=== PATIENT | female | born 1990 | race Caucasian/White ===

== ENCOUNTER 2017-08-28 14:51 | Inpatient (IN) | payer OTHER ==
[~2017-08-28] VITALS: Ht 167.6 cm; Wt 84.8 kg
[2017-08-28] MEDS ORDERED: MORPHINE SULFATE 10 MG/ML SYR IVP PRN (16:15)
[2017-08-28] MEDS ORDERED: LACTATED RINGERS 1,000 ML IV SCH (16:15)
[2017-08-28 17:02] LABS: BASOPHILS # (AUTO) 0.2 K/uL (0.00-0.22); BASOPHILS % (AUTO) 1.3 % (0.0-2.0); EOSINOPHILS # (AUTO) 0.1 K/uL (0-0.4); HEMATOCRIT 39.6 % (36-48); HEMOGLOBIN 13.4 g/dL (12.0-16.0); LYMPHOCYTES # (AUTO) 1.5 K/uL (2.5-16.5); LYMPHOCYTES % (AUTO) 13.1 % (20.5-51.1); MEAN CORPUSCULAR HEMOGLOBIN 31 pg (27-31); MEAN CORPUSCULAR HGB CONC 34 g/dL (33-37); MEAN CORPUSCULAR VOLUME 92 fL (80-94); MONOCYTES # (AUTO) 0.6 K/uL (0.8-1.0); MONOCYTES % (AUTO) 5.5 % (1.7-9.3); NEUTROPHILS # (AUTO) 9.2 K/uL (1.8-7.7); NEUTROPHILS % (AUTO) 79.1 % (42.2-75.2); PLATELET COUNT (AUTO) 231 K/uL (140-450); RED BLOOD CELL COUNT(AUTO) 4.33 MIL/uL (4.20-5.40); RED CELL DISTRIBUTION WIDTH 12.8 % (11.6-13.7); WHITE BLOOD COUNT (AUTO) 11.6 K/uL (4.8-10.8)
[2017-08-28 17:15] LABS: APPEARANCE,URINE CLEAR (CLEAR); BILIRUBIN,URINE NEGATIVE (NEGATIVE); BLOOD, URINE 2+ (NEGATIVE); COLOR,URINE YELLOW (YELLOW); LEUKOCYTE ESTERASE ,URINE NEGATIVE (NEGATIVE); NITRITE, URINE NEGATIVE (NEGATIVE); UGLUCOSE NEGATIVE (NEGATIVE)
[2017-08-28 17:17] LABS: RBC,URINE 0-5 (RARE) /HPF (0-5); WBC,URINE 0-5 (RARE) /HPF (0-5)
[2017-08-28] MEDS ORDERED: PREN-546 PO (17:31)
[2017-08-28] MEDS ORDERED: FERR-252 PO (17:31)
[2017-08-28] MEDS ORDERED: CALC650T90 PO (17:31)
[2017-08-28] MEDS ORDERED: NALBUPHINE HYDROCHLORIDE 10 MG/ML VIAL ONE (21:42)
[2017-08-28] MEDS ORDERED: PROMETHAZINE 25 MG/ML VIAL ONE (21:43)
[2017-08-28] MEDS: PROMETHAZINE 25 MG/ML VIAL IVP PRN (21:49)
[2017-08-28] MEDS: NALBUPHINE 10 MG/ML AMP IVP PRN (21:49)
[2017-08-29] MEDS ORDERED: AMPICILLIN 2,000 MG in NACL 0.9% MINI-BAG PLUS 100 ML IV SCH (01:00)
[2017-08-29] MEDS ORDERED: AMPICILLIN 2,000 MG VIAL ONE (01:27)
[2017-08-29] MEDS: PROMETHAZINE 25 MG/ML VIAL IVP PRN (03:29)
[2017-08-29] MEDS: NALBUPHINE 10 MG/ML AMP IVP PRN (03:30)
[2017-08-29] MEDS ORDERED: NALBUPHINE HYDROCHLORIDE 10 MG/ML VIAL ONE (03:37)
[2017-08-29] MEDS ORDERED: PROMETHAZINE 25 MG/ML VIAL ONE (03:37)
[2017-08-29] MEDS ORDERED: OXYTOCIN 20 UNITS in LACTATED RINGERS 1,000 ML IV SCH (04:00)
[2017-08-29] MEDS ORDERED: CARBOPROST 250 MCG/ML AMP IM PRN (04:00)
[2017-08-29] MEDS ORDERED: METHYLERGONOVINE 0.2 MG/ML AMP IM PRN ×2 (04:00→05:00)
[2017-08-29] MEDS ORDERED: OXYTOCIN 10 UNITS/ML VIAL IM SCH (04:00)
[2017-08-29] MEDS ORDERED: OXYTOCIN 10 UNITS/ML VIAL ONE (04:11)
[2017-08-29] MEDS ORDERED: OXYTOCIN 20 UNITS/LR PREMIX 1,000 ML IV ONE (04:11)
[2017-08-29] MEDS ORDERED: AMPICILLIN 1,000 MG in NACL 0.9% MINI-BAG PLUS 50 ML IV SCH (05:00)
[2017-08-29] MEDS ORDERED: HYDROcodone/APAP 5/325 MG 1 TAB TAB PO PRN (05:00)
[2017-08-29] MEDS ORDERED: TEMAZEPAM 15 MG CAP PO PRN (05:00)
[2017-08-29] MEDS ORDERED: oxyCODONE/APAP 5/325 MG 1 TAB TAB PO PRN (05:00)
[2017-08-29] MEDS ORDERED: OXYTOCIN 10 UNITS/ML VIAL IM PRN (05:00)
[2017-08-29] MEDS ORDERED: MEASLES, MUMPS, AND RUBELLA 1 VIAL SQVAC PRN (05:00)
[2017-08-29] MEDS ORDERED: BENZOCAINE/MENTHOL 20%-0.5% 60 GM CAN TP PRN (05:00)
[2017-08-29] MEDS ORDERED: IBUPROFEN 800 MG TAB PO PRN (05:00)
[2017-08-29] MEDS ORDERED: LIDOCAINE 1% 0 ML ONE (05:11)
--- NOTE | 2017-08-29 09:04 | NUR ---
PATIENT HAS BEEN SCREENED AND CATEGORIZED LOW NUTRITION RISK. PATIENT WILL BE SEEN WITHIN 7 DAYS OF ADMISSION. 09/04/[address]
[2017-08-29] MEDS ORDERED: DOCUSATE SOD/SENNA 50/8.6 MG 1 TAB PO SCH (21:00)
[2017-08-30 06:49] LABS: HEMATOCRIT 36.5 % (36-48); HEMOGLOBIN 12.6 g/dL (12.0-16.0)
[2017-08-30] MEDS ORDERED: IBUP-2217 PO (10:28)
== END 2017-08-31 14:10 | disposition home or self-care (01) | DRG 560 ==
LOC: OBSVTOIN 14:51 → MLD 14:51 → MFCC 08-29 09:35
PROVIDERS: ADMIT Obstetrics & Gynecology; ATTEND Obstetrics & Gynecology
PROC: 0HQ9XZZ Repair Perineum Skin, External Approach (ICD-10-PCS; principal; 2017-08-29)
PROC: 10E0XZZ Delivery of Products of Conception, External Approach (ICD-10-PCS; 2017-08-29)
PROC: 10907ZC Drainage of Amniotic Fluid, Therapeutic from Products of Conception, Via Natural or Artificial Opening (ICD-10-PCS; 2017-08-29)
DX: O70.0 First degree perineal laceration during delivery (principal); Z37.0 Single live birth; Z3A.39 39 weeks gestation of pregnancy
CPT/HCPCS: 36415; 59409; 81001; 85018; 85025; 86592; 86886; 86900; 86901; J0290; J2001; J2300; J2550; J2590; J7120